=== PATIENT | female | born 1965 | race Caucasian/White ===

== ENCOUNTER 2017-06-25 22:27 | Emergency (ER) | payer SELFPAY ==
[2017-06-25 23:01] VITALS: BP 118/72
== END 2017-06-26 01:00 | disposition left against medical advice (07) ==
LOC: ED 22:27
DX: M25.531 Pain in right wrist (principal); Z53.21 Procedure and treatment not carried out due to patient leaving prior to being seen by health care provider

== ENCOUNTER 2019-01-04 14:48 | Emergency (ER) | payer SELFPAY ==
--- NOTE | 2019-01-04 15:07 | Event Note ---
ED Screening Note Date of service: 01/04/19 Time: 15:06 ED Screening Note: 53 y o female presents with sore throat and general body aches x yesterday no fever This initial assessment/diagnostic orders/clinical plan/treatment(s) is/are subject to change based on patients health status, clinical progression and re- assessment by fellow clinical providers in the ED. Further treatment and workup at subsequent clinical providers discretion. Patient/guardian urged not to elope from the ED as their condition may be serious if not clinically assessed and managed. Initial orders include: ACC eval
[2019-01-04 15:08] VITALS: BP 143/91
[2019-01-04] MEDS ORDERED: IBUPROFEN PO ONE (17:31)
[2019-01-04] MEDS ORDERED: PROVENTIL IH ONE ×2 (17:31→18:09)
[2019-01-04] MEDS ORDERED: DELTASONE PO ONE (17:31)
--- NOTE | 2019-01-04 17:39 | Emergency Department Report ---
ED General Adult HPI - General Chief complaint: Sore Throat Stated complaint: CHEST PAIN Time Seen by Provider: 01/04/19 15:06 Source: patient Mode of arrival: Ambulatory Limitations: No Limitations - History of Present Illness Initial comments: pt is a 53 y o female who presents with sore throat , cp, sob, and general body aches x yesterday denies sick contacts no hx of asthma or bronchitis denies cad or cardiac hx , there is nausea no vomiting no diaphoresis no back pain,. symptoms relieved by rest , symptoms exacerbated by activity. Onset/Timin -: days(s) Location: chest Radiation: non-radiation Severity scale (0 -10): 5 Quality: aching Consistency: constant Improves with: rest Worsens with: movement Associated Symptoms: chest pain, cough, fever/chills, malaise, shortness of breath Treatments Prior to Arrival: none - Related Data Previous Rx's Medication Instructions Recorded Last Taken Type Amoxicillin/Potassium Clav 1 each PO BID 10 Days #20 tablet 01/04/19 Unknown Rx [Augmentin 875-125 Tablet] Ibuprofen [Motrin 800 MG tab] 800 mg PO Q8HR PRN #800 tablet 01/04/19 Unknown Rx predniSONE [Deltasone] 40 mg PO QDAY 5 Days #10 tab 01/04/19 Unknown Rx Allergies Allergy/AdvReac Type Severity Reaction Status Date / Time codeine Allergy Unknown Verified 06/25/17 23:16 ED Review of Systems ROS: Stated complaint: CHEST PAIN Other details as noted in HPI Constitutional: fever, malaise Eyes: denies: eye pain, eye discharge, vision change ENT: ear pain, throat pain, congestion Respiratory: cough, shortness of breath Cardiovascular: chest pain, dyspnea on exertion. denies: edema, syncope, parox ysmal nocturnal dyspnea Endocrine: no symptoms reported Gastrointestinal: nausea. denies: abdominal pain, diarrhea, constipation, melena, hematochezia Genitourinary: denies: urgency, dysuria, frequency, discharge Musculoskeletal: denies: back pain, joint swelling, arthralgia Skin: denies: rash, lesions Neurological: headache. denies: weakness, numbness, paresthesias, confusion, abnormal gait, vertigo Psychiatric: denies: anxiety, depression Hematological/Lymphatic: denies: easy bleeding, easy bruising ED Past Medical Hx - Past Medical History Previous Medical History?: No - Surgical History Past Surgical History?: No - Social History Smoking Status: Unknown if ever smoked Substance Use Type: None - Medications Home Medications: Home Medications Medication Instructions Recorded Confirmed Last Taken Type Amoxicillin/Potassium Clav 1 each PO BID 10 Days #20 tablet 01/04/19 Unknown Rx [Augmentin 875-125 Tablet] Ibuprofen [Motrin 800 MG tab] 800 mg PO Q8HR PRN #800 tablet 01/04/19 Unknown Rx predniSONE [Deltasone] 40 mg PO QDAY 5 Days #10 tab 01/04/19 Unknown Rx ED Physical Exam - General Limitations: No Limitations General appearance: alert, in no apparent distress - Head Head exam: Present: atraumatic, normocephalic - Eye Eye exam: Present: normal appearance, PERRL, EOMI. Absent: conjunctival injection, nystagmus Pupils: Present: normal accommodation - ENT ENT exam: Present: mucous membranes moist, TM's normal bilaterally, normal external ear exam - Expanded ENT Exam Expanded Ear exam: Present: normal external inspection Mouth exam: Present: normal external inspection. Absent: trismus Throat exam: Positive: tonsillar erythema, tonsillomegaly, tonsillar exudate, other (uvula midline moderate exudate , swelling , no lesion no stidor aiway is patent ). Negative: R peritonsillar mass, L peritonsillar mass - Neck Neck exam: Present: normal inspection, full ROM. Absent: tenderness, lymphadenopathy - Respiratory Respiratory exam: Present: normal lung sounds bilaterally, wheezes (mild exp wheezes ), chest wall tenderness (right anterior lateral chest wall pain ). Absent: respiratory distress, rales, rhonchi, stridor, accessory muscle use, prolonged expiratory - Cardiovascular Cardiovascular Exam: Present: regular rate, normal rhythm, normal heart sounds. Absent: systolic murmur, diastolic murmur, rubs, gallop - GI/Abdominal GI/Abdominal exam: Present: soft, normal bowel sounds. Absent: distended, tenderness, guarding, rebound, bruit, hernia - Rectal Rectal exam: Present: deferred - Extremities Exam Extremities exam: Present: normal inspection, full ROM, normal capillary refill. Absent: tenderness, calf tenderness - Back Exam Back exam: Present: normal inspection, full ROM. Absent: tenderness, CVA tende rness (R), CVA tenderness (L), muscle spasm, paraspinal tenderness, rash noted - Neurological Exam Neurological exam: Present: alert, oriented X3, CN II-XII intact, normal gait, reflexes normal. Absent: motor sensory deficit - Psychiatric Psychiatric exam: Present: normal affect, normal mood - Skin Skin exam: Present: warm, dry, intact, normal color. Absent: rash ED Course Vital Signs 01/04/19 01/04/19 15:06 18:12 Temperature 98.4 F Pulse Rate 104 H Pulse Rate [ 99 H Anterior Bilateral] Respiratory 18 Rate Respiratory 16 Rate [Anterior Bilateral] Blood Pressure 143/91 O2 Sat by Pulse 96 Oximetry ED Medical Decision Making - Lab Data Result diagrams: 01/04/19 17:37 01/04/19 17:37 - Radiology Data Radiology results: report reviewed, image reviewed no infiltrates no opacities infiltrates. - Medical Decision Making this is bronchitis, with pharyngitis plan augment, prednisone, tessalon, ibuprofen, albuterol, follow up with pcp in 2-3 days, return to emergency if symptosm worsen. pt verbalized agreement and understanding of discharge plan. Critical care attestation.: If time is entered above; I have spent that time in minutes in the direct care of this critically ill patient, excluding procedure time. ED Disposition Clinical Impression: Acute bronchitis Qualifiers: Bronchitis organism: unspecified organism Qualified Code(s): J20.9 - Acute bronchitis, unspecified Pharyngitis Qualifiers: Pharyngitis/tonsillitis etiology: unspecified etiology Qualified Code(s): J02.9 - Acute pharyngitis, unspecified Disposition: DC-01 TO HOME OR SELFCARE Is pt being admited?: No Does the pt Need Aspirin: No Condition: Stable Instructions: Acute Bronchitis (ED) Prescriptions: Amoxicillin/Potassium Clav [Augmentin 875-125 Tablet] 1 each PO BID 10 Days #20 tablet predniSONE [Deltasone] 40 mg PO QDAY 5 Days #10 tab Ibuprofen [Motrin 800 MG tab] 800 mg PO Q8HR PRN #800 tablet PRN Reason: pain fever Referrals: PRIMARY CARE,MD [Primary Care Provider] - 3-5 Days Forms: Work/School Release Form(ED) Time of Disposition: 18:56
[2019-01-04 17:49] LABS: Hematocrit 41.4 % (30.3-42.9); Hemoglobin 13.6 gm/dl (10.1-14.3); Mean Corpuscular HGB Conc 33 % (30-34); Mean Corpuscular Volume 87 fl (79-97); Platelet Count 154 K/mm3 (140-440); Red Blood Count 4.76 M/mm3 (3.65-5.03); Red Cell Distribution Width 16.1 % (13.2-15.2)
[2019-01-04 18:11] LABS: BUN/Creatinine Ratio 10; Blood Urea Nitrogen 8 mg/dL (7-17); Calcium 9.4 mg/dL (8.4-10.2); Hemolysis Index 9
--- NOTE | 2019-01-04 18:18 | XRay Report ---
CHEST 2 VIEWS, 01/04/2019 INDICATION: Cough. Chest pain. COMPARISON: None FINDINGS: Support devices: None Heart: Cardiac silhouette and pulmonary vascularity appear within normal limits. Lungs/pleura: There is no focal airspace disease or significant pleural effusion. Additional findings: No additional acute findings. IMPRESSION: 1. No evidence of acute cardiopulmonary process. Signer Name: Ginny Aly MD Signed: 01/04/2019 6:13 PM Workstation Name: [id number]
== END 2019-01-04 19:06 | disposition home or self-care (01) ==
LOC: ED 14:48
DX: J20.9 Acute bronchitis, unspecified (principal); J02.9 Acute pharyngitis, unspecified; Z88.5 Allergy status to narcotic agent; Z79.899 Other long term (current) drug therapy; Z79.1 Long term (current) use of non-steroidal anti-inflammatories (NSAID)
CPT/HCPCS: 36415; 71046; 80048; 84484; 85027; 94640; 99284; J7512; 94644